=== PATIENT | male | born 1950 | race Caucasian/White ===

== ENCOUNTER 2018-11-09 23:20 | Inpatient (IN) | payer OTHER ==
[~2018-11-09] VITALS: Ht 172.7 cm; Wt 71.7 kg
[2018-11-09 23:21] VITALS: Ht 172.7 cm; Wt 71.7 kg
[2018-11-10 00:09] LABS: BASOPHIL % 0.1 % (0-2); PLATELET COUNT 201 x10^3mcL (130-400); RED CELL DISTRIBUTION WIDTH 13.3 % (11.5-14.5)
[2018-11-10 00:13] LABS: CALCIUM 8.7 mg/dL (8.5-10.1); CARBON DIOXIDE 24.5 mmol/L (21-32); CHLORIDE SERUM 102 mmol/L (98-107); CREATININE SERUM 0.9 mg/dL (0.7-1.3); GFR1 > 60 mL/min; GLUCOSE SERUM 128 mg/dL (74-106); POTASSIUM SERUM 3.6 mmol/L (3.5-5.1); SODIUM SERUM 136 mmol/L (136-145)
[2018-11-10 00:19] LABS: ALBUMIN 3.6 g/dL (3.4-5.0); ALKALINE PHOSPHATASE 97 U/L (46-116); ALT/SGPT 24 U/L (16-63); AST/SGOT 16 U/L (15-37); BILIRUBIN TOTAL 0.7 mg/dL (0.20-1.00); TOTAL PROTEIN, SERUM 7.5 g/dL (6.4-8.2)
[2018-11-10 01:11] LABS: UA SPECIFIC GRAVITY 1.015 (1.005-1.035); microscopic required? YES; urine erythrocyte 1+ (NEGATIVE)
[2018-11-10] MEDS ORDERED: ALBUTEROL SULFAT3 ML IH (01:15)
[2018-11-10] MEDS ORDERED: MONTELUKAST SOD10 M1 PO (01:15)
[2018-11-10 02:08] VITALS: BP 110/62
[2018-11-10 06:06] LABS: BASOPHIL % 0.1 % (0-2); PLATELET COUNT 163 x10^3mcL (130-400); RED CELL DISTRIBUTION WIDTH 12.9 % (11.5-14.5)
[2018-11-10 06:16] LABS: ALBUMIN 3.2 g/dL (3.4-5.0); ALKALINE PHOSPHATASE 88 U/L (46-116); ALT/SGPT 22 U/L (16-63); AST/SGOT 20 U/L (15-37); BILIRUBIN TOTAL 0.51 mg/dL (0.20-1.00); CALCIUM 8.4 mg/dL (8.5-10.1); CARBON DIOXIDE 23.1 mmol/L (21-32); CHLORIDE SERUM 105 mmol/L (98-107); CREATININE SERUM 0.8 mg/dL (0.7-1.3); GFR1 > 60 mL/min; GLUCOSE SERUM 193 mg/dL (74-106); SODIUM SERUM 138 mmol/L (136-145); TOTAL PROTEIN, SERUM 7.1 g/dL (6.4-8.2)
[2018-11-10 09:56] VITALS: BP 112/73
[2018-11-10 16:30] VITALS: BP 115/60
[2018-11-10 20:55] VITALS: BP 106/59
[2018-11-11 05:38] VITALS: BP 112/60
[2018-11-11 07:18] LABS: BASOPHIL % 0 % (0-2); PLATELET COUNT 198 x10^3mcL (130-400); RED CELL DISTRIBUTION WIDTH 13.2 % (11.5-14.5)
[2018-11-11 08:06] LABS: CALCIUM 9.2 mg/dL (8.5-10.1); CARBON DIOXIDE 25.8 mmol/L (21-32); CHLORIDE SERUM 107 mmol/L (98-107); CREATININE SERUM 0.8 mg/dL (0.7-1.3); GFR1 > 60 mL/min; GLUCOSE SERUM 154 mg/dL (74-106); MAGNESIUM 2.2 mg/dL (1.8-2.4); POTASSIUM SERUM 4.5 mmol/L (3.5-5.1); SODIUM SERUM 143 mmol/L (136-145)
[2018-11-11 09:07] VITALS: BP 99/55
[2018-11-11] MEDS ORDERED: AZITHROMYCIN250 M1 PO (13:32)
[2018-11-11] MEDS ORDERED: PREDNISONE20 MG PO (13:32)
[2018-11-11] MEDS ORDERED: VENTOLIN H0.09 MG/A1 INH (13:33)
[2018-11-11] MEDS ORDERED: BREO ELLIPTA1 PO1 IH (13:33)
[2018-11-11 13:48] VITALS: BP 99/55
== END 2018-11-11 16:45 | disposition home or self-care (01) | DRG 189 ==
LOC: ED 23:20 → MU 11-10 01:05
PROVIDERS: Emergency Medicine; Internal Medicine Nephrology; ADMIT Internal Medicine Pulmonary Disease
DX: J96.01 Acute respiratory failure with hypoxia (principal); J45.901 Unspecified asthma with (acute) exacerbation; J20.9 Acute bronchitis, unspecified; E86.9 Volume depletion, unspecified; Z96.642 Presence of left artificial hip joint
CPT/HCPCS: 87804; 94150; J0456; J0696; J2920; J2930; J7030; J7050; J7613; J7620; J7626; J7644